=== PATIENT | male | born 1970 | race Caucasian/White ===

== ENCOUNTER 2020-10-09 08:36 | Emergency (ER) | payer OTHER ==
[~2020-10-09] VITALS: Ht 188 cm; Wt 131.5 kg
[2020-10-09] MEDS ORDERED: LISINOPRIL5 MG PO (08:52)
[2020-10-09] MEDS ORDERED: SIMVASTATIN80 MG PO (08:52)
[2020-10-09] MEDS ORDERED: HYDROCODON-ACE1 EAC7 PO (10:18)
[2020-10-09 10:40] VITALS: BP 189/98
== END 2020-10-09 10:40 | disposition home or self-care (01) ==
LOC: M.ERS 08:36
DX: S82.891A Other fracture of right lower leg, initial encounter for closed fracture (principal); I10 Essential (primary) hypertension; E78.5 Hyperlipidemia, unspecified; Z79.899 Other long term (current) drug therapy; W10.9XXA Fall (on) (from) unspecified stairs and steps, initial encounter; Y93.89 Activity, other specified; Y92.89 Other specified places as the place of occurrence of the external cause; Y99.8 Other external cause status

== ENCOUNTER → 2020-10-18 | Outpatient (CLI) | payer OTHER ==
[~2020-10-18] MED LIST: HYDROCODON-ACE1 EAC7 PO; LISINOPRIL5 MG PO; SIMVASTATIN80 MG PO
== END ==
LOC: M.MRI 10-13 14:45
PROVIDERS: ATTEND Family Medicine
DX: S93.491A Sprain of other ligament of right ankle, initial encounter (principal); M25.471 Effusion, right ankle; X58.XXXA Exposure to other specified factors, initial encounter; Y93.89 Activity, other specified; Y92.89 Other specified places as the place of occurrence of the external cause; Y99.8 Other external cause status